=== PATIENT | female | born 1940 | race Asian ===

== ENCOUNTER 2017-01-16 10:37 | Inpatient (IN) | payer MEDICARE, MEDICAID ==
[~2017-01-16] VITALS: Ht 160 cm; Wt 54.4 kg
[2017-01-16] MEDS ORDERED: MYRBETRIQ25 MG PO (12:22)
[2017-01-16] MEDS ORDERED: CELEBREX200 MG PO (12:22)
[2017-01-16] MEDS ORDERED: CILOSTAZOL100 M1 PO (12:23)
[2017-01-16] MEDS ORDERED: LOSARTAN POTASS50 M1 PO (12:23)
[2017-01-16] MEDS ORDERED: NAMENDA10 M2 PO (12:23)
[2017-01-16] MEDS ORDERED: MULTI-VITAMINS1 TAB (12:24)
[2017-01-16] MEDS ORDERED: ALENDRONATE SOD70 M2 PO (12:24)
[2017-01-16] MEDS ORDERED: METFORMIN HCL500 MG PO (12:24)
[2017-01-16] MEDS ORDERED: [UNRECOGNIZED DRUG - OTHER] MR (12:25)
[2017-01-16] MEDS ORDERED: ROSUVASTATIN CA10 MG PO (12:26)
[2017-01-16] MEDS ORDERED: ARICEPT10 MG PO (12:26)
[2017-01-16 12:27] LABS: PLATELET COUNT 395 x10^3mcL (130-400)
[2017-01-16 12:32] LABS: RED CELL DISTRIBUTION WIDTH 15.5 % (11.5-14.5)
[2017-01-16 12:54] LABS: ALKALINE PHOSPHATASE 220 U/L (46-116); ALT/SGPT 8 U/L (14-59); AST/SGOT 17 U/L (15-37); BILIRUBIN TOTAL 0.72 mg/dL (0.20-1.00); CALCIUM 8.8 mg/dL (8.5-10.1); CARBON DIOXIDE 19.9 mmol/L (21-32); CHLORIDE SERUM 103 mmol/L (98-107); GLUCOSE SERUM 196 mg/dL (74-106); MAGNESIUM 2.3 mg/dL (1.8-2.4); POTASSIUM SERUM 5.1 mmol/L (3.5-5.1); SODIUM SERUM 138 mmol/L (136-145); TOTAL PROTEIN, SERUM 7.7 g/dL (6.4-8.2)
[2017-01-16 13:09] LABS: BAND NEUTROPHIL 1 % (0-10); BASOPHIL 0 % (0-2); MONOCYTE 3 % (0-7); MYELOCYTE 1 % (0-2); SEGMENTED NEUTROPHILS 92 % (37-75)
[2017-01-16 13:10] LABS: ALBUMIN 1.9 g/dL (3.4-5.0)
[2017-01-16 13:11] LABS: CREATININE SERUM 8.1 mg/dL (0.6-1.0)
[2017-01-16 13:12] LABS: PLATELET MORPHOLOGY PLATELETS NORMAL; rbc morphology (normal/abnorm) ABNORMAL (NORMAL)
[2017-01-16 13:14] LABS: CK-MB 0.6 ng/mL (0-3.6)
[2017-01-16 14:01] LABS: microscopic required? YES; urine erythrocyte 2+ (NEGATIVE)
[2017-01-16 15:19] VITALS: BP 131/86
[2017-01-16 15:25] LABS: PHOSPHOROUS 3.4 mg/dL (2.5-4.9)
[2017-01-16 15:26] LABS: CHOLESTEROL/HDL RATIO 2.7
[2017-01-16 15:33] LABS: FREE T4 0.82 ng/dL (0.76-1.46)
[2017-01-16 15:36] LABS: FREE THYROXINE INDEX 1.3 ug/dL (1.4-4.5); T3 TOTAL 0.28 ng/mL; T4(THYROXINE) 3.4 ug/dL (4.7-13.3)
[2017-01-16 15:57] LABS: RED BLOOD CELLS 3.19 M/mm3 (4.10-5.10)
[2017-01-16 17:41] LABS: CALCIUM 8.4 mg/dL (8.5-10.1); CARBON DIOXIDE 21.7 mmol/L (21-32); CHLORIDE SERUM 106 mmol/L (98-107); GLUCOSE SERUM 155 mg/dL (74-106); POTASSIUM SERUM 4.9 mmol/L (3.5-5.1); SODIUM SERUM 141 mmol/L (136-145)
[2017-01-16 17:44] LABS: CREATININE SERUM 7.4 mg/dL (0.6-1.0)
[2017-01-16 17:51] LABS: IRON 26 ug/dL (50-170); TOTAL IRON BINDING CAPACITY 113 ug/dL (250-450)
[2017-01-16 21:32] VITALS: BP 116/80
[2017-01-17 06:08] VITALS: BP 108/75
[2017-01-17 06:38] LABS: CALCIUM 7.7 mg/dL (8.5-10.1); CARBON DIOXIDE 17.6 mmol/L (21-32); CHLORIDE SERUM 109 mmol/L (98-107); GLUCOSE SERUM 145 mg/dL (74-106); PHOSPHOROUS 3.4 mg/dL (2.5-4.9); POTASSIUM SERUM 4.2 mmol/L (3.5-5.1); SODIUM SERUM 143 mmol/L (136-145)
[2017-01-17 06:43] LABS: PLATELET COUNT 335 x10^3mcL (130-400)
[2017-01-17 06:47] LABS: CREATININE SERUM 6.2 mg/dL (0.6-1.0)
[2017-01-17 07:17] LABS: RED CELL DISTRIBUTION WIDTH 15.4 % (11.5-14.5)
[2017-01-17 09:57] VITALS: BP 99/66
[2017-01-17 12:07] LABS: BAND NEUTROPHIL 2 % (0-10); BASOPHIL 0 % (0-2); MONOCYTE 1 % (0-7); PLATELET MORPHOLOGY PLATELETS NORMAL; SEGMENTED NEUTROPHILS 96 % (37-75); rbc morphology (normal/abnorm) ABNORMAL (NORMAL)
[2017-01-17 14:04] VITALS: BP 111/77
[2017-01-17 22:21] VITALS: BP 102/69
[2017-01-18 03:51] LABS: microscopic required? YES; urine erythrocyte 1+ (NEGATIVE)
[2017-01-18 06:03] LABS: PLATELET COUNT 340 x10^3mcL (130-400)
[2017-01-18 06:16] VITALS: BP 105/66
[2017-01-18 06:23] LABS: CARBON DIOXIDE 17.1 mmol/L (21-32); CHLORIDE SERUM 118 mmol/L (98-107); GLUCOSE SERUM 146 mg/dL (74-106); MAGNESIUM 1.6 mg/dL (1.8-2.4); SODIUM SERUM 149 mmol/L (136-145)
[2017-01-18 06:28] LABS: CREATININE SERUM 4.4 mg/dL (0.6-1.0)
[2017-01-18 07:04] LABS: RED CELL DISTRIBUTION WIDTH 15.9 % (11.5-14.5)
[2017-01-18 08:22] LABS: BAND NEUTROPHIL 0 % (0-10); BASOPHIL 0 % (0-2); MONOCYTE 2 % (0-7); SEGMENTED NEUTROPHILS 98 % (37-75)
[2017-01-18 08:23] LABS: PLATELET MORPHOLOGY PLATELETS INCREASED; rbc morphology (normal/abnorm) ABNORMAL (NORMAL)
[2017-01-18 10:01] VITALS: BP 104/73
[2017-01-18 13:42] VITALS: Ht 160 cm; Wt 54.4 kg
[2017-01-18 15:03] VITALS: BP 101/59
[2017-01-18] MEDS ORDERED: LAC PO (15:57)
[2017-01-18] MEDS ORDERED: COL100 PO (15:57)
[2017-01-18] MEDS ORDERED: VANCOCIN125 MG PO (15:57)
[2017-01-18] MEDS ORDERED: VITC PO (15:58)
[2017-01-18] MEDS ORDERED: THERA TABS1 TAB PO (15:58)
[2017-01-18] MEDS ORDERED: HUMULIN R100 U/1 M1 SC (15:58)
[2017-01-18] MEDS ORDERED: GLU5 PO (15:58)
[2017-01-18] MEDS ORDERED: BG FS (15:59)
[2017-01-18] MEDS ORDERED: ECO81 PO (15:59)
[2017-01-18] MEDS ORDERED: ZOFI IV (15:59)
[2017-01-18] MEDS ORDERED: FER300 PO (16:00)
[2017-01-18] MEDS ORDERED: FLA500I IV (16:02)
[2017-01-18 16:59] VITALS: BP 101/59
[2017-01-18 17:49] VITALS: BP 112/67
== END 2017-01-18 18:10 | disposition short-term general hospital (02) | DRG 371 ==
LOC: ED 10:37 → DU 14:05
PROVIDERS: Emergency Medicine; Internal Medicine; ADMIT Family Medicine
PROC: 0FB13ZX Excision of Right Lobe Liver, Percutaneous Approach, Diagnostic (ICD-10-PCS; principal; 2017-01-18)
DX: A04.7 Enterocolitis due to Clostridium difficile (principal); N17.0 Acute kidney failure with tubular necrosis; E43 Unspecified severe protein-calorie malnutrition; R18.8 Other ascites; M80.88XA Other osteoporosis with current pathological fracture, vertebra(e), initial encounter for fracture; J90 Pleural effusion, not elsewhere classified; R31.9 Hematuria, unspecified; E11.65 Type 2 diabetes mellitus with hyperglycemia; E11.51 Type 2 diabetes mellitus with diabetic peripheral angiopathy without gangrene; I87.2 Venous insufficiency (chronic) (peripheral); I25.10 Atherosclerotic heart disease of native coronary artery without angina pectoris; I71.2 Thoracic aortic aneurysm, without rupture; I10 Essential (primary) hypertension; J44.9 Chronic obstructive pulmonary disease, unspecified; K44.9 Diaphragmatic hernia without obstruction or gangrene; E78.5 Hyperlipidemia, unspecified; D64.9 Anemia, unspecified; Z68.21 Body mass index [BMI] 21.0-21.9, adult; Z79.84 Long term (current) use of oral hypoglycemic drugs
CPT/HCPCS: 36600; 83880; 84439; 85060; 87046; 87046-59; 92610; J0696; J2001; J2543; J3475; J3480; J3490; J7030; J7042; Q0092